=== PATIENT | female | born 2000 | race Caucasian/White ===

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

== ENCOUNTER 2023-04-20 18:39 | Inpatient (IN) ==
--- NOTE | 2023-04-20 19:34 | Emergency Department Note ---
Impression & Plan Depression, Suicidal ideation ED Provider Note HISTORY OF PRESENT ILLNESS: Patient is a 22-year-old female presenting with suicidal ideation with plan. Patient was seen by her outpatient midlevel provider at [facility] earlier today. She expressed recurrent thoughts of suicidal ideation and plan to overdose on her medications. She states that she is on lithium as a mood stabilizer and as needed Ativan. Reports that she took 4 Ativan this morning trying to help her self feel better. She has not had an Ativan since around 8:30 AM. Denies any homicidal ideation. Reports that she has not been sleeping well recently secondary to insomnia. She has never attempted suicide in the past, despite triage note stating that she has. She has never been admitted inpatient before. Denies any physical complaint ROS: as above PHYSICAL EXAM: Constitutional: Patient appears in no acute distress. HENT: Head: Normocephalic and atraumatic. Eyes: EOMI, PERRL Mouth/Throat: Mucous membranes moist. Neck: Trachea midline. Neck supple. Musculoskeletal: No edema, tenderness or deformity noted. Skin: Warm and dry. No rash, erythema, pallor or cyanosis Psychiatric: Patient is answering questions in full complete sentences. She is tearful. Neurological: Alert and keenly responsive. CN II-XII grossly intact, moving all extremities equally and fully. MDM: - Vitals signs showed tachycardia - History obtained via patient. Patient presents with suicidal ideation with plan. Patient reports she has been having a rough time in the last few days and she saw her outpatient provider at [facility] and had discussed that she was having thoughts of suicide. She had a plan to overdose on her medications. She has never attempted suicide in the past. She reports she has not been sleeping well secondary to insomnia. Denies any homicidal ideation. She has not been admitted to an inpatient psychiatric unit before. - Chronic conditions affecting care: Bipolar disorder; depression/anxiety - Differential diagnoses include, but are not limited to: UTI; depression; viral syndrome; electrolyte abnormality - External medical records reviewed. - Laboratory workup interpreted by myself showed normal WBC; stable electrolytes; negative hCG; negative salicylate/acetaminophen/alcohol levels - UA negative for infection. Noted to have WBC and bacteria, but significant number of epithelial cells and patient has no symptoms of a UTI. Will not treat at this time. - UDS negative - COVID negative. - Patient was feeling very anxious on arrival to the emergency department. She requested some medication prior to laboratory workup being obtained. She was given 5 mg of oral Zyprexa with improvement in her anxiety. - Patient seen in conjunction with behavioral health resident care manager rn. She was a voluntary 201. Bed search was initiated and she was accepted to inpatient at [address] ASSESSMENT AND PLAN: Diagnosis: Depression; suicidal ideation Plan: Admit to [address] [place] [address] Past Med/Surg History Medical History (Updated 04/20/23 @ 23:01 by Merissa Bales MD) Herpes genitalia type 1 Right lower lobe pneumonia Insomnia Scoliosis Depression Anxiety Surgical History (Updated 03/27/22 @ 13:41 by Eva Munoz MD, FACOG) History of hip surgery History of tooth extraction History of myringotomy History of adenoidectomy History of tonsillectomy Family History Mother Family history of reaction to anesthesia severe N/V Social History Smoking Status: Never smoker Second Hand Exposure: Yes; Do You Dip or Chew Tobacco: No; Hx Alcohol Use: No Hx Substance Use: No Preferred Language: Somali Communication Ability: Effective Human Services Program Specialist Required: No Beliefs That Will Affect Care: None Feels Safe at Home: Yes Gender Identity: Female Assistive Devices: None Allergies Allergies Allergy/AdvReac Type Severity Reaction Status Date / Time No Known Allergies Allergy Verified 04/20/23 19:41 Home Meds Home Medications Medication Instructions Recorded Confirmed lamotrigine 25 mg tablet 25 mg PO DAILY 04/20/23 04/20/23 lorazepam 0.5 mg tablet 0.5 mg PO DAILY PRN Anxiety 04/20/23 04/20/23 Previous Rx's Medication Instructions Recorded etonogestrel 0.12 mg-ethinyl 1 vag ring vaginal ONCE #3 ea 12/20/22 estradiol 0.015 mg/24 hr vaginal ring Results & Data (ED) Vital Signs Vital Signs - 24 hr 04/20/23 18:45 Temperature 36.6 C Temperature Source Oral Pulse Rate 117 H Respiratory Rate 18 Respiratory Effort / Characteristics Non-Labored Respiratory Depth Normal Blood Pressure 127/85 Blood Pressure Mean 99 Pulse Oximetry 100 Oxygen Delivery Method Room Air Sepsis Recent Fever Within 48 Hours No Sepsis New/Unexplained Change in Mental Status No Sepsis Action Taken by Nursing No Action Required Laboratory Data 04/20/23 20:30 04/20/23 20:30 Lab Results 04/20/23 04/20/23 04/20/23 Range/Units 19:30 19:38 20:30 WBC 6.44 (4.8-10.8) K/ul RBC 4.43 (4.20-5.40) M/uL Hgb 14.1 (12.0-16.0) g/dl Hct 40.4 (37.0-47.0) % MCV 91.2 (80.0-100.0) fL MCH 31.8 (25.0-34.0) pg MCHC 34.9 (32.0-36.0) g/dL RDW Std Deviation 39.7 (36.4-46.3) fL RDW Coeff of Flora 11.9 (11.5-14.5) % Plt Count 293 (130-400) K/uL MPV 8.2 L (9.4-12.4) fL Immature Gran % (Auto) 0.2 % Neut % (Auto) 61.9 % Lymph % (Auto) 30.0 % [place] % (Auto) 6.7 % Eos % (Auto) 0.3 % Baso % (Auto) 0.9 % Neut # (Auto) 3.99 (1.40-6.50) K/uL Lymph # (Auto) 1.93 (1.20-3.40) K/uL [place] # (Auto) 0.43 (0.11-0.59) K/uL Eos # (Auto) 0.02 (0.00-0.50) K/uL Baso # (Auto) 0.06 (0.00-0.20) K/uL Immature Gran # (Auto) 0.01 (0.01-0.20) K/uL Sodium 137 (136-145) mmol/L Potassium 4.0 (3.5-5.1) mmol/L Chloride 107 (98-107) mmol/L Carbon Dioxide 24 (21-32) mmol/L Anion Gap 6 (3-11) BUN 14 (6-23) mg/dl Creatinine 0.84 (0.6-1.2) mg/dl Est Cr Clr Drug Dosing 79.9 ml/min Est GFR ( Amer) 115.1 ml/min Est GFR (Non-Af Amer) 99.4 ml/min BUN/Creatinine Ratio 16.7 (10-20) Glucose 111 H (70-99(Fasting)) mg/dl Calcium 9.5 (8.6-10.3) mg/dl Total Bilirubin 0.5 (0.2-1.0) mg/dl AST 13 (13-39) U/L ALT 8 (7-52) U/L Alkaline Phosphatase 61 (34-104) U/L Total Protein 8.0 (6.0-8.3) gm/dl Albumin 4.5 (3.4-5.0) gm/dl Globulin 3.5 (2.5-4.0) gm/dl Albumin/Globulin Ratio 1.3 (0.9-2) TSH 1.829 (0.300-4.500) uIu/ml HCG, Qual Negative (Negative) Urine Color Yellow Urine Appearance Clear (Clear) Urine pH 7.0 (4.5-7.5) Ur Specific [place] 1.025 (1.000-1.030) Urine Protein Negative (Negative) Urine Glucose (UA) Negative (Negative) Urine Ketones Trace H (Negative) Urine Blood Negative (Negative) Urine Nitrite Negative (Negative) Urine Bilirubin Negative (Negative) Urine Urobilinogen Negative (Negative) Ur Leukocyte Esterase 1+ H (Negative) Urine WBC (Auto) 10-30 H (0-5) /hpf Urine RBC (Auto) 0-4 (0-4) /hpf U Hyaline Cast (Auto) 1-5 (0-5) /lpf U Epithel Cells (Auto) 20-30 H (0-5) /lpf Urine Bacteria (Auto) 1+ H (Negative) Salicylates < 3.0 L (3.0-30) mg/dl Urine Opiates Screen Neg (Neg) Ur Methadone, Qual Neg (Neg) Acetaminophen < 3 L (10-30) ug/ml Urine Barbiturates Neg (Neg) Ur Phencyclidine (PCP) Neg (Neg) U Amphetamin/Meth Scrn Neg (Neg) MDMA (Ecstasy) Screen Neg (Neg) U Benzodiazepines Scrn Neg (Neg) Ur Cocaine Metabolite Neg (Neg) U Marijuana (THC) Screen Neg (Neg) Ethyl Alcohol mg/dL < 10.0 (<10.0) mg/dl SARS-CoV-2, RNA, NAAT NEGATIVE (NEGATIVE) Administered Medications Discontinued Medications Olanzapine (Olanzapine 5 Mg Tablet) 5 mg PO NOW STA Stop: 04/20/23 19:35 Last Admin: 04/20/23 20:04 Dose: 5 mg Documented By: SUYAPA Discharge Plan Visit Data Chief Complaint: Mental Health Evaluation Stated Complaint: MHE ED Provider: Merissa Bales Discharge Problem: Depression, Suicidal ideation Forms Stand Alone Forms: [facility], Suicide Prevention Resources Prescriptions Prescriptions: No Action etonogestrel-ethinyl estradiol 0.12-0.015 mg/24 hr ring 1 vag ring VAGINAL ONCE Qty: 3 2RF Rx Instructions: Insert 1 ring and leave in for 3 weeks, leave out for 1 week. Repeat every month lamotrigine 25 mg tablet 25 mg PO DAILY Patient Comments: Patient started medication about 3 weeks prior. Patient was suppose to take 1 pill daily for 2 weeks then increase to 2 pills daily. She has been non- complaint with medication and has missed frequent doses, and has not started to titrate medication up. lorazepam 0.5 mg tablet 0.5 mg PO DAILY PRN (Reason: Anxiety) Rx Instructions: 1-2 tabs PRN daily. Referrals Referrals: PCP,EDWARDO [Primary Care Provider] -
[2023-04-20 19:50] LABS: Appearance Urine Clear (Clear); Bacteria Urine Automated 1+ (Negative); Bilirubin Urine Negative (Negative); Blood Urine Negative (Negative); Color Urine Yellow; Epithelial Cell Urine Auto 20-30 /lpf (0-5); Glucose Urine UA Negative (Negative); Ketones Urine Trace (Negative); Leukocyte Esterase Urine 1+ (Negative); Nitrite Urine Negative (Negative); Protein Urine Negative (Negative); RBC Urine Automated 0-4 /hpf (0-4); Specific Gravity Urine 1.025 (1.000-1.030); Urobilinogen Urine Negative (Negative)
[2023-04-20] MEDS: OLANZapine 5 MG TABLET PO STA (20:04)
[2023-04-20 20:56] LABS: Basophils # (auto) 0.06 K/uL (0.00-0.20); Basophils % (auto) 0.9 %; Eosinophils # (auto) 0.02 K/uL (0.00-0.50); Eosinophils % (auto) 0.3 %; Hematocrit (blood only) 40.4 % (37.0-47.0); Hemoglobin 14.1 g/dl (12.0-16.0); Immature Granulocytes # (auto) 0.01 K/uL (0.01-0.20); Immature Granulocytes % (auto) 0.2 %; Lymphocytes # (auto) 1.93 K/uL (1.20-3.40); Mean Corpuscular Hemoglobin 31.8 pg (25.0-34.0); Mean Corpuscular Hgb Conc 34.9 g/dL (32.0-36.0); Mean Corpuscular Volume 91.2 fL (80.0-100.0); Mean Platelet Volume 8.2 fL (9.4-12.4); Monocytes # (auto) 0.43 K/uL (0.11-0.59); Monocytes % (auto) 6.7 %; Neutrophils # (auto) 3.99 K/uL (1.40-6.50); Neutrophils % (auto) 61.9 %; Platelet Count 293 K/uL (130-400); RDW Coefficient of Variation 11.9 % (11.5-14.5); RDW Standard Deviation 39.7 fL (36.4-46.3); Red Blood Count 4.43 M/uL (4.20-5.40); White Blood Count 6.44 K/ul (4.8-10.8)
[2023-04-20 20:58] LABS: Amphetamines+Metham, Urine Neg (Neg); Barbiturates, Urine Neg (Neg); Benzodiazepine, Urine Neg (Neg); Cocaine, Urine Neg (Neg); MDMA (Ecstacy), Urine Neg (Neg); Marijuana, Urine Neg (Neg); Methadone, Urine Neg (Neg); Opiate, Urine Neg (Neg); Phencyclidine, Urine Neg (Neg)
[2023-04-20 21:06] LABS: Albumin Globulin Ratio 1.3 (0.9-2); Albumin Level 4.5 gm/dl (3.4-5.0); BUN Creatinine Ratio 16.7 (10-20); Bilirubin,Total 0.5 mg/dl (0.2-1.0); Calcium 9.5 mg/dl (8.6-10.3); Creatinine Clr Calc Pharmacy 79.9 ml/min; Est GFR (African American) 115.1 ml/min; Est GFR (Non-African American) 99.4 ml/min; Globulin 3.5 gm/dl (2.5-4.0)
[2023-04-20 21:12] LABS: Pregnancy Test, Serum Negative (Negative)
[2023-04-20 21:21] LABS: Thyroid Stimulating Hormone 1.829 uIu/ml (0.300-4.500)
[2023-04-20 21:22] LABS: Acetaminophen < 3 ug/ml (10-30); Salicylate < 3.0 mg/dl (3.0-30)
[2023-04-20] MEDS ORDERED: ALUMINUM/MAGNESIUM SUSP 30 ML UDC PO PRN (23:53)
[2023-04-20] MEDS ORDERED: ACETAMINOPHEN 325 MG TAB PO PRN (23:53)
[2023-04-20] MEDS ORDERED: SODIUM CHLORIDE 0.65% NA SOLN 45 ML (OCEAN) PRN (23:53)
[2023-04-20] MEDS ORDERED: BISMUTH SUBSALICYLATE LIQD 236 ML PO PRN (23:53)
[2023-04-20] MEDS ORDERED: MAGNESIUM HYDROXIDE SUSP 30 ML UDC PO PRN (23:53)
[2023-04-20] MEDS: hydrOXYzine HCl 25 MG TAB PO PRN (23:58)
[2023-04-21] MEDS: hydrOXYzine HCl 25 MG TAB PO PRN (11:10)
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
[2023-04-21] MEDS ORDERED: FLUOCINONIDE 0.05% EXT PRN (14:58)
[2023-04-21] MEDS: QUEtiapine FUMARATE 25 MG TABLET PO PRN (20:27)
[2023-04-22] MEDS ORDERED: QUEtiapine FUMARATE 100 MG TABLET PO PRN (13:18)
--- NOTE | 2023-04-22 13:35 | Psychiatric Progress Note ---
Date of Service April 22, 2023 Impression / Recommendations Impression 22 yo female with hx of unspecified childhood trauma with chronic symptoms of reexperiencing and being hyperalert consistent with previous dx of PTSD presented with misuse of Ativan and SI. Overall, I spent a total of 40 minutes with this case, including review of chart, review of records, direct evaluation of the patient, counseling the patient, ordering medication, coordination with nursing, and documentation. (1) Major depression: (2) Post traumatic stress disorder (PTSD): (3) Social anxiety disorder: Plan 04/22/23: trial of 50 mg Vistaril prn during day, titrate Seroquel to 100 mg this hs (scheduled) with additional 100 mg available prn. Fasting metabolic labs in the am. 04/21/23: The patient was admitted to the [facility] ([facility] health unit) on q15 min checks (behavioral with suicide precautions) for safety. The patient will participate in group, recreational, and milieu therapies and will be offered additional individual and family sessions as clinically appropriate. She is more interested in therapy than medication, was hoping to continue Ativan prn and reviewed that Vistaril is available instead as Ativan is a controlled substance and she combined with other substances/did not take as prescribed. Reviewed options for possible trial of Remeron or prn Seroquel to improve mood or sleep and she preferred the latter if Vistaril ineffective. Briefly reviewed risks/benefits and if would continue would need to monitor other issues (movement, metabolic). Will offer 25 mg hs with a repeat Seroquel prn if Vistaril ineffective. Inventory Assets Strengths: desires therapy, good relationship with family Needs: improve coping, resume therapy Suicide Risk Level Suicide Risk Level: High-Moderate (q15 min suicide checks) Risk Factors Assessment Do You Have Access To A Gun?: No Mental Health Diagnoses: Yes Previous Attempt: No Family History of Suicide: No Previous Psychiatric Hospitalization: No Protective Factors Assessment Employed: No Supportive Family: Yes Interval History Identifying Information TAMANNA TAVERA is a 22-year-old F who currently lives in [email or web address] has a history of PSTD/depression, and was admitted on 04/20/23 22:35 on a 201 voluntary commitment for SI with plan. Chief Complaint "my sleep was horrible last night and that makes me mad." Review of Systems Sleep Information Total Hours of Sleep: 3 Meal Information Percent Meal Consumed - Breakfast: 90 Percent Meal Consumed - Lunch: 100 Percent Meal Consumed - Dinner: 80 Subjective Subjective Patient was seen & assessed and interval progress reviewed with nursing and social work. Reviewed factors that impact patients sleep including sleep hygiene (allows sleep phase shift on weekends), recent substance use, PTSD. Patient denied any past psychoeducation re: amygdala/limbic system and possible role of being hyperalert contributing to her DFA. Despite not really wanting standing meds, she accepted multiple prns, doesn't find 25 mg Vistaril that effect and sleep was disrupted despite 50 mg each of Seroquel and Vistaril. Reviewed that given that she is typically up all night and sleeping all day, regardless of meds, takes more than 1 night to reset sleep. She is motivated to stay out of room today and take scheduled Seroquel this am. She is undecided re: [facility]. Physical Exam Psychiatric Orientation: alert and oriented x 3 Apperance: appropriately dressed and appropriately groomed Eye Contact: + fair eye contact Motor Behavior: no abnormal motor movements Speech: normal rate/rhythm/volume of speech Affect: + depressed affect Mood: + anxious mood and + irritable mood Thought Process: goal directed thought process Thought Content: reality based without delusions Suicidal Thoughts: denies suicidal plan (on unit) and denies suicidal intent; + reports suicidal thoughts (if has to deal with sleep issues outside of hospital) Homicidal Thoughts: denies homicidal thoughts Hallucinations: no auditory hallucinations and no visual hallucinations Cognition: attention grossly intact and language grossly intact Estimated Intelligence: consistent with education level Insight: + limited insight Judgment: + limited judgement Vital Signs (Past 24 Hours) Last Vital Signs Temp 37 C 04/22/23 06:39 Pulse 64 04/22/23 06:41 Resp 16 04/22/23 06:39 BP 108/73 04/22/23 06:41 Pulse Ox 99 04/21/23 00:19 O2 Del Method Room Air 04/21/23 00:19 Results & Data ([facility]) Current Inpatient Medications Current Inpatient Medications: Current Inpatient Medications Acetaminophen (Acetaminophen 325 Mg Tab) 650 mg PO Q4H PRN PRN Reason: Headache or Minor Fever Stop: 05/20/23 23:52 Al Hydrox/Mg Hydrox/Simethicone (Aluminum/Magnesium Susp 30 Ml Udc) 30 ml PO Q4H PRN PRN Reason: GI Upset Stop: 05/20/23 23:52 Bismuth Subsalicylate (Bismuth Subsalicylate Liqd 236 Ml) 15 ml PO PRN PRN PRN Reason: Loose Stool Stop: 05/20/23 23:52 Fluocinonide (Pt's Own Med Fluocinonide 0.05% Cr 60 Gm Tube) 1 appln EXT DAILY PRN; Protocol PRN Reason: affected skin Stop: 05/21/23 14:57 Hydroxyzine HCl (Hydroxyzine Hcl 25 Mg Tab) 50 mg PO Q4H PRN PRN Reason: Anxiety Stop: 05/20/23 23:52 Magnesium Hydroxide (Magnesium Hydroxide Susp 30 Ml Udc) 30 ml PO DAILY PRN PRN Reason: Constipation Stop: 05/20/23 23:52 Quetiapine Fumarate (Quetiapine Fumarate 100 Mg Tablet) 100 mg PO HS PRN PRN Reason: Insomnia Stop: 05/21/23 14:38 Quetiapine Fumarate (Quetiapine Fumarate 100 Mg Tablet) 100 mg PO HS ZAIDA Stop: 05/22/23 21:59 Sodium Chloride (Sodium Chloride 0.65% Na Soln 45 Ml ([place])) 1 - 2 sprays NA PRN PRN PRN Reason: Nasal Dryness/Congestion Stop: 05/20/23 23:52 Mental Health & Subst Abuse Tx Therapist Name of Therapist: JOYCE [employer] Operations Intelligence Officer Name of [employer] Operations Intelligence Officer: JOYCE
[2023-04-22] MEDS: hydrOXYzine HCl 25 MG TAB PO PRN (14:11)
[2023-04-22] MEDS: QUEtiapine FUMARATE 100 MG TABLET PO SCH (20:53)
[2023-04-23 08:34] LABS: Chol HDL Ratio 2.5 (0-5)
[2023-04-23] MEDS ORDERED: traZODone HCL 100 MG TAB PO PRN (16:51)
--- NOTE | 2023-04-23 16:59 | Psychiatric Progress Note ---
Date of Service April 23, 2023 Impression / Recommendations Impression 22 yo female with hx of unspecified childhood trauma with chronic symptoms of reexperiencing and being hyperalert consistent with previous dx of PTSD presented with misuse of Ativan and SI. MNPR due to severity of PTSD Overall, I spent a total of 37 minutes with this case, including review of chart, review of records, direct evaluation of the patient, counseling the patient, ordering medication, coordination with nursing, and documentation. 04/23/23: patient remains focussed on Ativan being only med that helps and feels she would not have had to misuse if concerns were addressed. Reframed. (1) Major depression: (2) Post traumatic stress disorder (PTSD): (3) Social anxiety disorder: Plan 04/23/23: d/c Seroquel trial. LM for [place] to discuss pros/cons of benzos moving forward as at this time had not restarted here, offered trial of trazodone this hs and moving room to limit noise. Patient agreeable to 100 mg hs trazodone with additional prn. 04/22/23: trial of 50 mg Vistaril prn during day, titrate Seroquel to 100 mg this hs (scheduled) with additional 100 mg available prn. Fasting metabolic labs in the am. 04/21/23: The patient was admitted to the [facility] ([facility] mental health unit) on q15 min checks (behavioral with suicide precautions) for safety. The patient will participate in group, recreational, and milieu therapies and will be offered additional individual and family sessions as clinically appropriate. She is more interested in therapy than medication, was hoping to continue Ativan prn and reviewed that Vistaril is available instead as Ativan is a controlled substance and she combined with other substances/did not take as prescribed. Reviewed options for possible trial of Remeron or prn Seroquel to improve mood or sleep and she preferred the latter if Vistaril ineffective. Briefly reviewed risks/benefits and if would continue would need to monitor other issues (movement, metabolic). Will offer 25 mg hs with a repeat Seroquel prn if Vistaril ineffective. Inventory Assets Strengths: desires therapy, good relationship with family Needs: improve coping, resume therapy Suicide Risk Level Suicide Risk Level: Moderate (q15 min suicide checks) Risk Factors Assessment Do You Have Access To A Gun?: No Mental Health Diagnoses: Yes Previous Attempt: No Family History of Suicide: No Previous Psychiatric Hospitalization: No Protective Factors Assessment Employed: No Supportive Family: Yes Interval History Identifying Information TAMANNA CASTAÑEDA is a 22-year-old F who currently lives in [facility]), has a history of PSTD/depression, and was admitted on 04/20/23 22:35 on a 201 voluntary commitment for SI with plan. Chief Complaint ongoing sleep issues, sensitivity to noise Review of Systems Sleep Information Total Hours of Sleep: 4 Meal Information Percent Meal Consumed - Breakfast: 100 Percent Meal Consumed - Lunch: 90 Percent Meal Consumed - Dinner: 90 Subjective Subjective Patient was seen & assessed and interval progress reviewed with treatment team. She reports ongoing issues with feeling hyperalert, multiple awakenings during safety checks, c/o current room being close to doors that open and close freuquently. Was place on MNPR but issues continue and notes severe social anxiety with feeling watched in milieu, not comfortable eating in front of peers and being asked direct questions. Reviewed that home she is socially isolated. She reported Seroquel seemed minimally effective after more than 1 hr and then developed some dizziness and subjective tachy. She doesn't feel it was typical presentation for her panic attacks and attributes to medication. Physical Exam Psychiatric Orientation: alert and oriented x 3 Apperance: appropriately dressed and appropriately groomed Eye Contact: + fair eye contact Motor Behavior: no abnormal motor movements Speech: normal rate/rhythm/volume of speech Affect: + depressed affect Mood: + depressed mood, + anxious mood and + irritable mood Thought Process: goal directed thought process Thought Content: reality based without delusions Suicidal Thoughts: denies suicidal thoughts, denies suicidal plan and denies suicidal intent Homicidal Thoughts: denies homicidal thoughts Hallucinations: no auditory hallucinations and no visual hallucinations Cognition: attention grossly intact and language grossly intact Estimated Intelligence: consistent with education level Insight: + limited insight Judgment: + limited judgement Vital Signs (Past 24 Hours) Last Vital Signs Temp 37 C 04/23/23 06:46 Pulse 87 04/23/23 06:47 Resp 16 04/23/23 06:46 BP 97/65 L 04/23/23 06:47 Pulse Ox 97 04/22/23 22:42 O2 Del Method Room Air 04/22/23 22:42 Results & Data ([facility]) Laboratory Results Laboratory Results - last 24 hr 04/23/23 07:49 Fasting Glucose 96 Triglycerides 86 Cholesterol 128 LDL Cholesterol, Calc 60 VLDL Cholesterol, Calc 17 HDL Cholesterol 51 Cholesterol/HDL Ratio 2.5 Current Inpatient Medications Current Inpatient Medications: Current Inpatient Medications Acetaminophen (Acetaminophen 325 Mg Tab) 650 mg PO Q4H PRN PRN Reason: Headache or Minor Fever Stop: 05/20/23 23:52 Al Hydrox/Mg Hydrox/Simethicone (Aluminum/Magnesium Susp 30 Ml Udc) 30 ml PO Q4H PRN PRN Reason: GI Upset Stop: 05/20/23 23:52 Bismuth Subsalicylate (Bismuth Subsalicylate Liqd 236 Ml) 15 ml PO PRN PRN PRN Reason: Loose Stool Stop: 05/20/23 23:52 Fluocinonide (Pt's Own Med Fluocinonide 0.05% Cr 60 Gm Tube) 1 appln EXT DAILY PRN; Protocol PRN Reason: affected skin Stop: 05/21/23 14:57 Hydroxyzine HCl (Hydroxyzine Hcl 25 Mg Tab) 50 mg PO Q4H PRN PRN Reason: Anxiety Stop: 05/20/23 23:52 Last Admin: 04/23/23 15:32 Dose: 50 mg Magnesium Hydroxide (Magnesium Hydroxide Susp 30 Ml Udc) 30 ml PO DAILY PRN PRN Reason: Constipation Stop: 05/20/23 23:52 Sodium Chloride (Sodium Chloride 0.65% Na Soln 45 Ml ([place])) 1 - 2 sprays NA PRN PRN PRN Reason: Nasal Dryness/Congestion Stop: 05/20/23 23:52 Trazodone HCl (Trazodone Hcl 100 Mg Tab) 100 mg PO HS ZAIDA Stop: 05/23/23 21:59 Trazodone HCl (Trazodone Hcl 100 Mg Tab) 100 mg PO HS PRN PRN Reason: Insomnia Stop: 05/23/23 21:59 Mental Health & Subst Abuse Tx Psychiatrist Name of Psychiatrist: Noel Alvares Psychiatrist's Date Of Appointment With Psychiatric Provider: 05/03/2023 Time of Appointment with Psychiatrist: 9:20am Psychiatric Appointment Comment: [address] [place], [place] [address] Therapist Name of Therapist: NA Goat Driver Name of Goat Driver: JOYCE
[2023-04-23] MEDS: traZODone HCL 100 MG TAB PO SCH (20:18)
[2023-04-24] MEDS ORDERED: traZODone HCL 50 MG TAB PO PRN (14:07)
--- NOTE | 2023-04-24 16:54 | Psychiatric Progress Note ---
Date of Service April 24, 2023 Impression / Recommendations Impression 22 yo female with hx of unspecified childhood trauma with chronic symptoms of reexperiencing and being hyperalert consistent with previous dx of PTSD presented with misuse of Ativan and SI. MNPR due to severity of PTSD Overall, I spent a total of 38 minutes with this case, including review of chart, direct evaluation of the patient, counseling the patient, ordering medication, coordination with nursing, and documentation. 04/24/23: improving (1) Major depression: (2) Post traumatic stress disorder (PTSD): (3) Social anxiety disorder: Plan 04/24/23: increase trazodone to 150 mg hs. patient awakens with anxiety and would prefer standing dose of Vistaril 50 mg po qam. 04/23/23: d/c Seroquel trial. LM for [place] to discuss pros/cons of benzos moving forward as at this time had not restarted here, offered trial of trazodone this hs and moving room to limit noise. Patient agreeable to 100 mg hs trazodone with additional prn. 04/22/23: trial of 50 mg Vistaril prn during day, titrate Seroquel to 100 mg this hs (scheduled) with additional 100 mg available prn. Fasting metabolic labs in the am. 04/21/23: The patient was admitted to the [facility] ([facility] health unit) on q15 min checks (behavioral with suicide precautions) for safety. The patient will participate in group, recreational, and milieu therapies and will be offered additional individual and family sessions as clinically appropriate. She is more interested in therapy than medication, was hoping to continue Ativan prn and reviewed that Vistaril is available instead as Ativan is a controlled substance and she combined with other substances/did not take as prescribed. Reviewed options for possible trial of Remeron or prn Seroquel to improve mood or sleep and she preferred the latter if Vistaril ineffective. Briefly reviewed risks/benefits and if would continue would need to monitor other issues (movement, metabolic). Will offer 25 mg hs with a repeat Seroquel prn if Vistaril ineffective. Inventory Assets Strengths: desires therapy, good relationship with family Needs: improve coping, resume therapy Suicide Risk Level Suicide Risk Level: Moderate (q15 min suicide checks) Risk Factors Assessment Do You Have Access To A Gun?: No Mental Health Diagnoses: Yes Previous Attempt: No Family History of Suicide: No Previous Psychiatric Hospitalization: No Protective Factors Assessment Employed: No Supportive Family: Yes Interval History Identifying Information TAMANNA CASTAÑEDA is a 22-year-old F who currently lives in [facility]), has a history of PSTD/depression, and was admitted on 04/20/23 22:35 on a 201 voluntary commitment for SI with plan. Chief Complaint "I actually want to start going to the gym." Review of Systems Sleep Information Total Hours of Sleep: 6 Sleep Comments: Pt had Trazodone at HS and PRN Vistaril. Meal Information Percent Meal Consumed - Breakfast: 90 Percent Meal Consumed - Lunch: 90 Percent Meal Consumed - Dinner: 95 Subjective Subjective Patient was seen & assessed and interval progress reviewed with nursing and social work. Patient was anxious this am and continues to rely on Vistaril but is less "irritated" this afternoon. She was able to tolerate the trazodone and felt some benefit and is more realistic for the quality of sleep in the hospital given her PTSD and extreme sleep phase shift. She did have a family meeting with her mother. note I did speak with Alia Alvares last pm --outpatient prescriber on admission re: her Ativan use/self medication and she is in agreeable that benzodiazepines are not appropriate for this patient at this time. Physical Exam Psychiatric Orientation: alert and oriented x 3 Apperance: appropriately dressed and appropriately groomed Eye Contact: + fair eye contact Motor Behavior: no abnormal motor movements Speech: normal rate/rhythm/volume of speech Affect: + depressed affect Mood: + depressed mood and + anxious mood Thought Process: goal directed thought process Thought Content: reality based without delusions Suicidal Thoughts: denies suicidal thoughts, denies suicidal plan and denies suicidal intent Homicidal Thoughts: denies homicidal thoughts Hallucinations: no auditory hallucinations and no visual hallucinations Cognition: attention grossly intact and language grossly intact Estimated Intelligence: consistent with education level Insight: + limited insight Judgment: + limited judgement Vital Signs (Past 24 Hours) Last Vital Signs Temp 36.9 C 04/24/23 06:27 Pulse 91 H 04/24/23 06:27 Resp 18 04/24/23 06:27 BP 112/73 04/24/23 06:27 Pulse Ox 97 04/22/23 22:42 O2 Del Method Room Air 04/22/23 22:42 Results & Data ([facility]) Current Inpatient Medications Current Inpatient Medications: Current Inpatient Medications Acetaminophen (Acetaminophen 325 Mg Tab) 650 mg PO Q4H PRN PRN Reason: Headache or Minor Fever Stop: 05/20/23 23:52 Al Hydrox/Mg Hydrox/Simethicone (Aluminum/Magnesium Susp 30 Ml Udc) 30 ml PO Q4H PRN PRN Reason: GI Upset Stop: 05/20/23 23:52 Bismuth Subsalicylate (Bismuth Subsalicylate Liqd 236 Ml) 15 ml PO PRN PRN PRN Reason: Loose Stool Stop: 05/20/23 23:52 Fluocinonide (Pt's Own Med Fluocinonide 0.05% Cr 60 Gm Tube) 1 appln EXT DAILY PRN; Protocol PRN Reason: affected skin Stop: 05/21/23 14:57 Hydroxyzine HCl (Hydroxyzine Hcl 25 Mg Tab) 50 mg PO Q6 PRN PRN Reason: Anxiety Stop: 05/22/23 13:17 Hydroxyzine HCl (Hydroxyzine Hcl 25 Mg Tab) 50 mg PO QAM ZAIDA Stop: 05/25/23 08:59 Magnesium Hydroxide (Magnesium Hydroxide Susp 30 Ml Udc) 30 ml PO DAILY PRN PRN Reason: Constipation Stop: 05/20/23 23:52 Sodium Chloride (Sodium Chloride 0.65% Na Soln 45 Ml ([place])) 1 - 2 sprays NA PRN PRN PRN Reason: Nasal Dryness/Congestion Stop: 05/20/23 23:52 Trazodone HCl (Trazodone Hcl 50 Mg Tab) 150 mg PO HS ZAIDA Stop: 05/24/23 21:59 Trazodone HCl (Trazodone Hcl 50 Mg Tab) 50 mg PO HS PRN PRN Reason: Insomnia Stop: 05/23/23 21:59 Mental Health & Subst Abuse Tx Psychiatrist Name of Psychiatrist: Noel Alvares Psychiatrist's Date Of Appointment With Psychiatric Provider: 05/03/2023 Time of Appointment with Psychiatrist: 9:20am Psychiatric Appointment Comment: [address] [place] [address] Therapist Name of Therapist: JOYCE In School Suspension Aide Name of In School Suspension Aide: NA Post Discharge Appointments Primary Care Physician Name Of Family Doctor/PCP: JADA Masters (new) Primary Care Date of Future Appointment with PCP: 05/01/23 Time of Appointment with PCP: 3:20pm
[2023-04-24] MEDS: traZODone HCL 50 MG TAB PO SCH (21:45)
[2023-04-25] MEDS: hydrOXYzine HCl 25 MG TAB PO PRN (04:43)
[2023-04-25] MEDS: hydrOXYzine HCl 25 MG TAB PO SCH (08:56)
[2023-04-25] MEDS: hydrOXYzine HCl 25 MG TAB PO ONE (09:52)
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
== END 2023-04-25 10:53 | disposition home or self-care (01) | DRG 881 ==
LOC: ED 18:39 → 3S 22:35